=== PATIENT | male | born 2000 | race Caucasian/White ===

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

== ENCOUNTER 2019-02-27 18:42 | Emergency (ER) | payer OTHER ==
[~2019-02-27] VITALS: Ht 170.2 cm; Wt 77.3 kg
[~2019-02-27 18:42] MED LIST: HYDRO50TAB PO; NICO14PA TD; ROZE8TAB16 PO; SERT25TA85 PO
--- NOTE | 2019-02-27 19:43 | REP ---
Right knee five views : There is no fracture or dislocation. Mineralization and joint spaces are normal. There are no calcifications or foreign bodies. Impression: Negative right knee . Electronically Signed by Zaheer Madera MD 02/27/2019 07:35 P
[2019-02-27] MEDS ORDERED: ACETAMINOPH W/CODEINE #3 TAB UD PO ONE (23:15)
[2019-02-27] MEDS ORDERED: TYLETAB14 PO (23:35)
[2019-02-27 23:37] VITALS: BP 118/69
== END 2019-02-27 23:42 | disposition home or self-care (01) ==
LOC: M ED 18:42
DX: S89.91XA Unspecified injury of right lower leg, initial encounter (principal); X50.1XXA Overexertion from prolonged static or awkward postures, initial encounter; Y92.89 Other specified places as the place of occurrence of the external cause; Y99.1 Military activity; Y93.02 Activity, running; F32.9 Major depressive disorder, single episode, unspecified